=== PATIENT | female | born 1955 | race Two or more races ===

== ENCOUNTER 2019-08-02 06:10 | Emergency (ER) | payer OTHER ==
[~2019-08-02] VITALS: Ht 157.5 cm; Wt 68.0 kg
[2019-08-02] MEDS ORDERED: COZAAR100 MG (06:20)
== END 2019-08-02 10:04 | disposition home or self-care (01) ==
LOC: ER 06:10
DX: J06.9 Acute upper respiratory infection, unspecified (principal); R06.02 Shortness of breath; Z03.818 Encounter for observation for suspected exposure to other biological agents ruled out

== ENCOUNTER 2020-08-06 08:04 | Outpatient (CLI) | payer OTHER ==
[~2020-08-06 08:04] MED LIST: COZAAR100 MG
== END 2020-08-06 08:12 | disposition home or self-care (01) ==
LOC: RX STUDY 08:04
PROVIDERS: ATTEND Internal Medicine
DX: K21.9 Gastro-esophageal reflux disease without esophagitis (principal); R11.2 Nausea with vomiting, unspecified